=== PATIENT | male | born 1975 | race Caucasian/White ===

== ENCOUNTER 2020-03-08 06:55 | Emergency (ER) | payer MEDICARE ==
[~2020-03-08] VITALS: Ht 177.8 cm; Wt 75.5 kg
[2020-03-08] MEDS ORDERED: AMLO-96 PO (07:11)
[2020-03-08] MEDS ORDERED: CARB100 PO (07:11)
[2020-03-08] MEDS ORDERED: BUPR75 PO (07:11)
[2020-03-08] MEDS ORDERED: SERT50TA12 PO (07:11)
[2020-03-08] MEDS ORDERED: METO25 PO (07:11)
[2020-03-08] MEDS ORDERED: FAMOTIDINE 10 MG/ML 2 ML VIAL IVP ONE (07:30)
[2020-03-08] MEDS ORDERED: ONDANSETRON HCL 4 MG/2 ML VIAL IVP ONE (07:30)
[2020-03-08] MEDS ORDERED: MORPHINE SULFATE 2 MG/ML SYRINGE IVP ONE (07:30)
[2020-03-08] MEDS ORDERED: SODIUM CHLORIDE 0.9% 1,000 ML IV ONE (07:30)
[2020-03-08 07:54] LABS: BASOPHILS % (AUTO) 0.5 % (0.0-2.0); EOSINOPHILS % (AUTO) 0 % (1.0-6.0); HEMATOCRIT 45.7 % (41-53); HEMOGLOBIN 15.9 g/dL (13.5-17.5); LYMPHOCYTES # (AUTO) 1.3 K/uL (1.0-4.8); LYMPHOCYTES % (AUTO) 22.6 % (22.0-44.0); MEAN CORPUSCULAR HGB CONC 34.8 G/dL (31.0-37.0); MEAN CORPUSCULAR VOLUME 98 fL (80-100); MONOCYTES # (AUTO) 0.4 K/uL (0.1-1.0); MONOCYTES % (AUTO) 7.3 % (2.0-9.0); NEUTROPHILS # (AUTO) 3.9 K/uL (1.8-7.7); NEUTROPHILS % (AUTO) 69.6 % (40.0-70.0); PLATELET COUNT (AUTO) 275 K/uL (150-450); RED BLOOD CELL COUNT(AUTO) 4.69 MIL/uL (4.50-5.90); RED CELL DISTRIBUTION WIDTH 13.2 % (11.5-14.5)
[2020-03-08 08:08] LABS: ANION GAP 18 mmol/L (8-16); CALCIUM, TOTAL 9.5 mg/dL (8.8-10.5); CARBON DIOXIDE 22 mmol/L (22-29); CHLORIDE 94 mmol/L (98-107); CREATININE 1.05 mg/dL (0.60-1.30); GLOMERULAR FILTR. RATE CALC > 60 mL/min (>60); GLUCOSE,RANDOM 98 mg/dL (70-110); SODIUM SERUM 134 mmol/L (136-145); UREA NITROGEN, BLOOD 22 mg/dL (7-18)
[2020-03-08 08:09] LABS: PROTHROMBIN TIME 10.1 SEC (9.4-11.6)
[2020-03-08 08:14] LABS: ALANINE AMINOTRANSFERASE 105 U/L (12-78); ALBUMIN 4.4 g/dL (3.4-5.0); ALKALINE PHOSPHATASE 79 U/L (46-116); ASPARTATE AMINOTRANSFERASE 83 U/L (15-37); BILIRUBIN,TOTAL 0.6 mg/dL (0.1-1.0); LIPASE 118 U/L (73-393); TOTAL PROTEIN, SERUM 7.9 g/dL (6.4-8.2)
[2020-03-08 10:21] LABS: AMPHET/METH SCREEN,URINE NEGATIVE (NEGATIVE); BARBITURATE SCREEN, URINE NEGATIVE (NEGATIVE); BENZODIAZEPINES SCREEN,URINE NEGATIVE (NEGATIVE); CANNABINOID SCREEN,URINE NEGATIVE (NEGATIVE); COCAINE SCREEN,URINE NEGATIVE (NEGATIVE); METHADONE SCREEN, URINE NEGATIVE (NEGATIVE); OPIATE SCREEN,URINE POSITIVE (NEGATIVE); PHENCYCLIDINE SCREEN,URINE NEGATIVE (NEGATIVE)
[2020-03-08 10:45] VITALS: BP 134/84
== END 2020-03-08 10:59 | disposition home or self-care (01) ==
LOC: EMS 06:55
DX: R11.2 Nausea with vomiting, unspecified (principal); R19.7 Diarrhea, unspecified; R10.13 Epigastric pain; M79.10 Myalgia, unspecified site; F31.9 Bipolar disorder, unspecified; I10 Essential (primary) hypertension; F17.210 Nicotine dependence, cigarettes, uncomplicated; Z20.828 Contact with and (suspected) exposure to other viral communicable diseases; Z88.8 Allergy status to other drugs, medicaments and biological substances
CPT/HCPCS: 36415; 71045; 80053; 80307; 83690; 84484; 85025; 85610; 85730; 86850; 86900; 86901; 87426; 93005; 96361; 96374; 96375; 99285; G0480; J2270; J2405; J3490; J7030

== ENCOUNTER 2020-03-11 08:21 | Inpatient (IN) | payer BC, MEDICARE ==
[~2020-03-11] VITALS: Ht 177.8 cm; Wt 71.8 kg
[2020-03-11] VITALS (8 sets, daily range): BP systolic 134–152; BP diastolic 84–103
[~2020-03-11 08:21] MED LIST: AMLO-96 PO; BUPR75 PO; CARB100 PO; METO25 PO; SERT50TA12 PO
[2020-03-11 08:51] LABS: BASOPHILS % (AUTO) 0.5 % (0.0-2.0); EOSINOPHILS % (AUTO) 0.3 % (1.0-6.0); HEMATOCRIT 41.1 % (41-53); HEMOGLOBIN 14.1 g/dL (13.5-17.5); LYMPHOCYTES # (AUTO) 2.4 K/uL (1.0-4.8); LYMPHOCYTES % (AUTO) 56.8 % (22.0-44.0); MEAN CORPUSCULAR HGB CONC 34.4 G/dL (31.0-37.0); MEAN CORPUSCULAR VOLUME 99 fL (80-100); MONOCYTES # (AUTO) 0.3 K/uL (0.1-1.0); NEUTROPHILS # (AUTO) 1.5 K/uL (1.8-7.7); NEUTROPHILS % (AUTO) 35.4 % (40.0-70.0); PLATELET COUNT (AUTO) 188 K/uL (150-450); RED BLOOD CELL COUNT(AUTO) 4.15 MIL/uL (4.50-5.90); RED CELL DISTRIBUTION WIDTH 13.3 % (11.5-14.5)
[2020-03-11 09:02] LABS: ANION GAP 10 mmol/L (8-16); CALCIUM, TOTAL 7.8 mg/dL (8.8-10.5); CARBON DIOXIDE 29 mmol/L (22-29); CHLORIDE 102 mmol/L (98-107); CREATININE 0.76 mg/dL (0.60-1.30); GLOMERULAR FILTR. RATE CALC > 60 mL/min (>60); GLUCOSE,RANDOM 103 mg/dL (70-110); POTASSIUM 3.3 mmol/L (3.5-5.1); SODIUM SERUM 141 mmol/L (136-145); UREA NITROGEN, BLOOD 8 mg/dL (7-18)
[2020-03-11 09:07] LABS: ALANINE AMINOTRANSFERASE 220 U/L (12-78); ALBUMIN 3.4 g/dL (3.4-5.0); ALKALINE PHOSPHATASE 66 U/L (46-116); ASPARTATE AMINOTRANSFERASE 143 U/L (15-37); BILIRUBIN,TOTAL 0.3 mg/dL (0.1-1.0); CARBAMAZEPINE (TEGRETOL) 0.8 mcg/mL (4.0-12.0); TOTAL PROTEIN, SERUM 6.2 g/dL (6.4-8.2)
[2020-03-11 09:08] LABS: ACETAMINOPHEN < 2 mcg/mL (10-30)
[2020-03-11 09:14] LABS: SALICYLATE 2.9 mg/dL (2.8-20.0)
[2020-03-11] MEDS ORDERED: HYD50 PO (12:00)
[2020-03-11] MEDS ORDERED: TRAZ-257 PO (12:00)
[2020-03-11] MEDS ORDERED: NICOTINE 21 MG/24 HOUR PATCH TD ONE (12:00)
[2020-03-11] MEDS ORDERED: NALT50TA6 PO (12:00)
[2020-03-11] MEDS ORDERED: GABA800T9 PO (12:00)
[2020-03-11] MEDS ORDERED: BUPR-93 PO (12:00)
[2020-03-11] MEDS ORDERED: CARB200T6 PO (12:00)
[2020-03-11] MEDS ORDERED: SERT100T12 PO (12:00)
[2020-03-11 12:04] LABS: AMPHET/METH SCREEN,URINE NEGATIVE (NEGATIVE); BARBITURATE SCREEN, URINE NEGATIVE (NEGATIVE); BENZODIAZEPINES SCREEN,URINE NEGATIVE (NEGATIVE); CANNABINOID SCREEN,URINE NEGATIVE (NEGATIVE); COCAINE SCREEN,URINE NEGATIVE (NEGATIVE); METHADONE SCREEN, URINE NEGATIVE (NEGATIVE); OPIATE SCREEN,URINE NEGATIVE (NEGATIVE); PHENCYCLIDINE SCREEN,URINE NEGATIVE (NEGATIVE)
[2020-03-11] MEDS ORDERED: CYANOCOBALAMIN 1,000 MCG/ML VIAL IM ONE (14:45)
[2020-03-11] MEDS ORDERED: GuaiFENesin/D-METHORPHAN [SUGAR-FREE] 200-20MG/10 ML SYRUP UDCUP PO PRN (14:45)
[2020-03-11] MEDS ORDERED: HALOPERIDOL 5 MG TABLET PO PRN (14:45)
[2020-03-11] MEDS ORDERED: LOPERAMIDE HCL 2 MG CAPSULE PO PRN (14:45)
[2020-03-11] MEDS ORDERED: HydrOXYzine PAMOATE 50 MG CAPSULE PO PRN (14:45)
[2020-03-11] MEDS: ChlordiazePOXIDE HCL 25 MG CAPSULE PO PRN ×4 (15:23→23:47)
[2020-03-11 16:39] LABS: ANION GAP 9 mmol/L (8-16); CALCIUM, TOTAL 8.6 mg/dL (8.8-10.5); CARBON DIOXIDE 29 mmol/L (22-29); CHLORIDE 99 mmol/L (98-107); CREATININE 0.83 mg/dL (0.60-1.30); GLOMERULAR FILTR. RATE CALC > 60 mL/min (>60); GLUCOSE,RANDOM 105 mg/dL (70-110); POTASSIUM 3.7 mmol/L (3.5-5.1); SODIUM SERUM 137 mmol/L (136-145); UREA NITROGEN, BLOOD 9 mg/dL (7-18)
[2020-03-11 16:45] LABS: ALANINE AMINOTRANSFERASE 227 U/L (12-78); ALBUMIN 3.9 g/dL (3.4-5.0); ALKALINE PHOSPHATASE 75 U/L (46-116); ASPARTATE AMINOTRANSFERASE 144 U/L (15-37); BILIRUBIN,TOTAL 0.4 mg/dL (0.1-1.0); TOTAL PROTEIN, SERUM 6.9 g/dL (6.4-8.2)
[2020-03-11] MEDS: MULTIVITAMINS WITH MINERALS, THERAPEUTIC TABLET PO SCH (17:53)
[2020-03-11] MEDS: FOLIC ACID 1 MG TABLET PO SCH (17:53)
[2020-03-11] MEDS: THIAMINE 100 MG TABLET PO SCH (17:53)
[2020-03-11] MEDS ORDERED: ACETAMINOPHEN 325 MG TABLET PO PRN (19:30)
[2020-03-11] MEDS: BACITRACIN 28.4 GM OINTMENT TP SCH (19:56)
[2020-03-11] MEDS: ZOLPIDEM TARTRATE 10 MG TABLET PO PRN ×2 (20:28→23:47)
[2020-03-12] VITALS (7 sets, daily range): BP systolic 134–156; BP diastolic 74–109
[2020-03-12] MEDS: ChlordiazePOXIDE HCL 25 MG CAPSULE PO PRN ×5 (02:01→11:16)
[2020-03-12 07:27] LABS: CHOL/HDL RATIO 2.3 (4.2-7.3)
[2020-03-12] MEDS ORDERED: DOCUSATE SODIUM 100 MG CAPSULE PO PRN (08:15)
[2020-03-12] MEDS ORDERED: LOPERAMIDE HCL 2 MG CAPSULE PO PRN (08:15)
[2020-03-12] MEDS ORDERED: CloNIDine HCL 0.1 MG TABLET PO PRN (08:15)
[2020-03-12] MEDS ORDERED: NICOTINE 14 MG/24 HOUR PATCH TD PRN (08:15)
[2020-03-12] MEDS ORDERED: GuaiFENesin/D-METHORPHAN [SUGAR-FREE] 200-20MG/10 ML SYRUP UDCUP PO PRN (08:15)
[2020-03-12] MEDS ORDERED: MAGNESIUM HYDROXIDE SUSPENSION 30 ML UDCUP PO PRN (08:15)
[2020-03-12] MEDS ORDERED: ALBUTEROL SULFATE HFA 90 MCG/PUFF 8 GM INHALER IH PRN (08:15)
[2020-03-12] MEDS ORDERED: ONDANSETRON HCL 4 MG TABLET PO PRN (08:15)
[2020-03-12] MEDS ORDERED: IBUPROFEN 400 MG TABLET PO PRN (08:15)
[2020-03-12] MEDS ORDERED: MAG HYDROX/AL HYDROX/SIMETH ES 30 ML SUSPENSION UDCUP PO PRN (08:15)
[2020-03-12] MEDS ORDERED: PETROLATUM,WHITE 28 GM JELLY TP PRN (08:15)
[2020-03-12] MEDS ORDERED: ACETAMINOPHEN 325 MG TABLET PO PRN (08:15)
[2020-03-12] MEDS: MULTIVITAMINS WITH MINERALS, THERAPEUTIC TABLET PO SCH (08:56)
[2020-03-12] MEDS: FOLIC ACID 1 MG TABLET PO SCH (08:56)
[2020-03-12] MEDS: METOPROLOL TARTRATE 25 MG TABLET PO SCH ×2 (08:56→17:06)
[2020-03-12] MEDS: ChlordiazePOXIDE HCL 25 MG CAPSULE PO SCH ×4 (08:57→21:31)
[2020-03-12] MEDS: AmLODIPine BESYLATE 10 MG TABLET PO SCH (08:57)
[2020-03-12] MEDS: THIAMINE 100 MG TABLET PO SCH ×2 (08:57→17:06)
[2020-03-12] MEDS: NICOTINE 21 MG/24 HOUR PATCH TD SCH (08:59)
[2020-03-12] MEDS: BACITRACIN 28.4 GM OINTMENT TP SCH ×2 (08:59→17:13)
[2020-03-12] MEDS ORDERED: AmLODIPine BESYLATE 5 MG TABLET PO SCH (09:00)
[2020-03-12] MEDS: BuPROPion HCL XL 150 MG ER TABLET PO SCH (11:16)
[2020-03-13 06:26] VITALS: BP 151/95
[2020-03-13] MEDS: MULTIVITAMINS WITH MINERALS, THERAPEUTIC TABLET PO SCH (09:06)
[2020-03-13] MEDS: METOPROLOL TARTRATE 25 MG TABLET PO SCH ×2 (09:06→16:27)
[2020-03-13] MEDS: FOLIC ACID 1 MG TABLET PO SCH (09:06)
[2020-03-13] MEDS: AmLODIPine BESYLATE 10 MG TABLET PO SCH (09:06)
[2020-03-13] MEDS: ChlordiazePOXIDE HCL 25 MG CAPSULE PO SCH ×4 (09:06→20:17)
[2020-03-13] MEDS: BuPROPion HCL XL 150 MG ER TABLET PO SCH (09:06)
[2020-03-13] MEDS: THIAMINE 100 MG TABLET PO SCH ×2 (09:07→16:26)
[2020-03-13] MEDS: NICOTINE 21 MG/24 HOUR PATCH TD SCH (09:08)
[2020-03-13] MEDS: BACITRACIN 28.4 GM OINTMENT TP SCH ×2 (09:09→16:26)
[2020-03-13 09:20] VITALS: BP 133/87
[2020-03-13 10:22] VITALS: BP 133/87
[2020-03-13 16:48] VITALS: BP 144/80
[2020-03-13 17:16] VITALS: BP 144/80
[2020-03-14 06:18] VITALS: BP 129/89
[2020-03-14] MEDS ORDERED: ChlordiazePOXIDE HCL 10 MG CAPSULE PO PRN (07:00)
[2020-03-14 08:00] VITALS: BP 136/88
[2020-03-14] MEDS ORDERED: BUPR-93 PO (08:56)
[2020-03-14] MEDS ORDERED: AMLO-258 PO (08:58)
[2020-03-14] MEDS ORDERED: BACI500P3 TP (08:59)
[2020-03-14] MEDS ORDERED: ChlordiazePOXIDE HCL 10 MG CAPSULE PO SCH (09:00)
[2020-03-14] MEDS ORDERED: METO25 PO (09:00)
[2020-03-14] MEDS: BuPROPion HCL XL 150 MG ER TABLET PO SCH (09:15)
[2020-03-14] MEDS: THIAMINE 100 MG TABLET PO SCH (09:15)
[2020-03-14] MEDS: AmLODIPine BESYLATE 10 MG TABLET PO SCH (09:15)
[2020-03-14] MEDS: METOPROLOL TARTRATE 25 MG TABLET PO SCH (09:16)
[2020-03-14] MEDS: MULTIVITAMINS WITH MINERALS, THERAPEUTIC TABLET PO SCH (09:16)
[2020-03-14] MEDS: FOLIC ACID 1 MG TABLET PO SCH (09:17)
[2020-03-14] MEDS: NICOTINE 21 MG/24 HOUR PATCH TD SCH (09:20)
[2020-03-14] MEDS: BACITRACIN 28.4 GM OINTMENT TP SCH (09:21)
[2020-03-15] MEDS ORDERED: ChlordiazePOXIDE HCL 10 MG CAPSULE PO PRN (07:00)
== END 2020-03-14 09:45 | disposition home or self-care (01) | DRG 885 ==
LOC: EMS 08:21 → 3EI 14:31
DX: F33.2 Major depressive disorder, recurrent severe without psychotic features (principal); R45.851 Suicidal ideations; D72.819 Decreased white blood cell count, unspecified; I10 Essential (primary) hypertension; F17.210 Nicotine dependence, cigarettes, uncomplicated; G47.00 Insomnia, unspecified; F10.20 Alcohol dependence, uncomplicated; Z91.5 Personal history of self-harm
CPT/HCPCS: 99291; G0480; G0481; J3420